=== PATIENT | female | born 1955 | race Caucasian/White ===

== ENCOUNTER 2017-09-13 07:18 | Emergency (ER) | payer OTHER ==
[2017-09-13 07:52] LABS: BASOPHILS 0.2 % (0-2); EOSINOPHILS 1.9 % (0-7); HEMATOCRIT 38.4 % (36.0-48.0); HEMOGLOBIN 13.2 g/dL (12-16); IMMATURE GRANULOCYTES 0.2 % (0-5); LYMPHOCYTES 21.7 % (15-50); MCH 28.6 pg (26.0-34.0); MCHC 34.4 g/dL (31.0-37.0); MCV 83.1 fL (80.0-100.0); MEAN PLATELET VOLUME 9.8 fL (7.4-10.4); MONOCYTES 6.2 % (2-11); NEUTROPHILS 69.8 % (40-80); PLATELET COUNT 306 10x3/uL (130-400); RBC 4.62 10x6/uL (4.00-5.40); RDW 12.8 % (11.5-14.5); WBC 11.2 10x3/uL (4.8-10.8)
[2017-09-13 08:10] LABS: ALBUMIN 3.6 g/dL (3.4-5.0); ALKALINE PHOSPHATASE 77 U/L (46-116); ALT (SGPT) 41 U/L (10-68); CALC OSMOLALITY 265 mosm/kg (275-300); CALCIUM 9.8 mg/dL (8.5-10.1); CARBON DIOXIDE 26.6 mmol/L (21.0-32.0); CHLORIDE - SERUM 92 mmol/L (98-107); CREATININE - SERUM 0.8 mg/dL (0.6-1.3); GLUCOSE 197 mg/dL (74-106); POTASSIUM - SERUM 3.9 mmol/L (3.5-5.1); PROTEIN - SERUM 6.9 g/dL (6.4-8.2); SODIUM 130 mmol/L (136-145); UREA NITROGEN 12 mg/dL (7-18); eGFR NON AFRICAN AMERICAN 77 mL/min (90-120)
[2017-09-19 14:47] VITALS: BMI 44.0
== END 2017-09-13 08:56 | disposition home or self-care (01) ==
LOC: D.ER 07:18
PROVIDERS: Emergency Medicine
DX: I10 Essential (primary) hypertension (principal)

== ENCOUNTER 2017-09-18 13:44 | Inpatient (IN) | payer OTHER ==
[~2017-09-18] VITALS: Ht 157.5 cm; Wt 108.6 kg
[2017-09-18 15:08] LABS: BASOPHILS 0.1 % (0-2); EOSINOPHILS 0.5 % (0-7); HEMATOCRIT 36.7 % (36.0-48.0); HEMOGLOBIN 13.1 g/dL (12-16); IMMATURE GRANULOCYTES 0.3 % (0-5); LYMPHOCYTES 13.8 % (15-50); MCH 28.7 pg (26.0-34.0); MCHC 35.7 g/dL (31.0-37.0); MCV 80.5 fL (80.0-100.0); MEAN PLATELET VOLUME 9.6 fL (7.4-10.4); MONOCYTES 7.1 % (2-11); NEUTROPHILS 78.2 % (40-80); PLATELET COUNT 305 10x3/uL (130-400); RBC 4.56 10x6/uL (4.00-5.40); RDW 12.4 % (11.5-14.5); WBC 10.8 10x3/uL (4.8-10.8)
[2017-09-18 15:27] LABS: APPEARANCE CLEAR (CLEAR); BILIRUBIN NEGATIVE (NEGATIVE); COLOR YELLOW (YELLOW); GLUCOSE NEGATIVE (NEGATIVE); KETONE MODERATE mg/dL (NEGATIVE); NITRITE NEGATIVE (NEGATIVE); PROTEIN NEGATIVE (NEGATIVE); UROBILINOGEN NORMAL (NORMAL)
[2017-09-18 15:28] LABS: BACTERIA MODERATE /hpf (NONE SEEN)
[2017-09-18 15:34] LABS: CALCIUM 9.6 mg/dL (8.5-10.1); GLUCOSE 158 mg/dL (74-106); POTASSIUM - SERUM 3.5 mmol/L (3.5-5.1); THYROID STIMULATING HORMONE 0.87 uIU/mL (0.36-3.74); UREA NITROGEN 12 mg/dL (7-18); eGFR NON AFRICAN AMERICAN 59 mL/min (90-120)
[2017-09-18 15:42] LABS: CALC OSMOLALITY 244 mosm/kg (275-300); TROPONIN-I < 0.017 ng/mL (0.000-0.060)
[2017-09-18 15:43] LABS: CHLORIDE - SERUM 84 mmol/L (98-107); SODIUM 120 mmol/L (136-145)
[2017-09-18 20:30] VITALS: BP 140/77
[2017-09-19] VITALS (7 sets, daily range): BP systolic 120–152; BP diastolic 62–82; Ht 157.5 cm; Wt 108.6 kg
[2017-09-19] MEDS ORDERED: PHENERGAN25 M1 PO (01:35)
[2017-09-19] MEDS ORDERED: NORVASC5 MG PO (01:35)
[2017-09-19] MEDS ORDERED: MELOXICAM TAB 15M (01:36)
[2017-09-19] MEDS ORDERED: TRADJENTA5 MG PO (01:36)
[2017-09-19] MEDS ORDERED: GLUCOTROL 5 MG T5 MG PO (01:36)
[2017-09-19] MEDS ORDERED: ZESTRIL40 MG PO (01:36)
[2017-09-19] MEDS ORDERED: TOPROL XL100 MG PO (01:37)
[2017-09-19] MEDS ORDERED: GLUCOPHAGE1000 MG PO (01:41)
[2017-09-19] MEDS ORDERED: MELOXICAM TAB 15M PO (01:42)
[2017-09-19 06:36] LABS: BASOPHILS 0.1 % (0-2); EOSINOPHILS 2.1 % (0-7); HEMATOCRIT 32.8 % (36.0-48.0); HEMOGLOBIN 11.6 g/dL (12-16); IMMATURE GRANULOCYTES 0.4 % (0-5); LYMPHOCYTES 29.6 % (15-50); MCH 28.4 pg (26.0-34.0); MCHC 35.4 g/dL (31.0-37.0); MCV 80.2 fL (80.0-100.0); MEAN PLATELET VOLUME 9.8 fL (7.4-10.4); MONOCYTES 8.1 % (2-11); NEUTROPHILS 59.7 % (40-80); PLATELET COUNT 273 10x3/uL (130-400); RBC 4.09 10x6/uL (4.00-5.40); RDW 12.5 % (11.5-14.5); WBC 9.4 10x3/uL (4.8-10.8)
[2017-09-19 07:02] LABS: CALC OSMOLALITY 250 mosm/kg (275-300); CALCIUM 9.2 mg/dL (8.5-10.1); CARBON DIOXIDE 25.6 mmol/L (21.0-32.0); CHLORIDE - SERUM 88 mmol/L (98-107); CREATININE - SERUM 0.8 mg/dL (0.6-1.3); GLUCOSE 125 mg/dL (74-106); POTASSIUM - SERUM 3.4 mmol/L (3.5-5.1); SODIUM 124 mmol/L (136-145); UREA NITROGEN 12 mg/dL (7-18); eGFR NON AFRICAN AMERICAN 77 mL/min (90-120)
[2017-09-20 01:23] VITALS: BP 147/86
[2017-09-20 05:23] LABS: BASOPHILS 0.2 % (0-2); HEMOGLOBIN 13.7 g/dL (12-16); IMMATURE GRANULOCYTES 0.3 % (0-5); LYMPHOCYTES 33.6 % (15-50); MCH 28.1 pg (26.0-34.0); MCHC 34.5 g/dL (31.0-37.0); MCV 81.4 fL (80.0-100.0); MEAN PLATELET VOLUME 10.2 fL (7.4-10.4); MONOCYTES 8.2 % (2-11); NEUTROPHILS 55.7 % (40-80); RBC 4.88 10x6/uL (4.00-5.40); RDW 12.8 % (11.5-14.5); WBC 11.6 10x3/uL (4.8-10.8)
[2017-09-20 05:35] LABS: ANION GAP 14.5 mmol/L (8-16); CALCIUM 9.7 mg/dL (8.5-10.1); CARBON DIOXIDE 25.9 mmol/L (21.0-32.0); POTASSIUM - SERUM 4.4 mmol/L (3.5-5.1)
[2017-09-20 05:37] LABS: HEMATOCRIT 39.7 % (36.0-48.0); PLATELET COUNT 428 10x3/uL (130-400)
[2017-09-20 05:58] VITALS: BP 130/68
[2017-09-20 08:08] VITALS: BP 126/68
[2017-09-20 11:40] VITALS: BP 115/46
[2017-09-20] MEDS ORDERED: HYZAAR 100-25 T1 TAB PO (15:03)
[2017-09-20 16:16] VITALS: BP 148/96
== END 2017-09-20 17:37 | disposition home or self-care (01) | DRG 641 ==
LOC: D.ER 13:44 → D.M2 16:22
PROVIDERS: Emergency Medicine
DX: E87.1 Hypo-osmolality and hyponatremia (principal); J01.90 Acute sinusitis, unspecified; I10 Essential (primary) hypertension